=== PATIENT | male | born 1970 | race Caucasian/White ===

== ENCOUNTER 2017-05-15 16:39 | Emergency (ER) | payer SELFPAY ==
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
[2017-05-15 16:58] VITALS: BP 144/87
[2017-05-15] MEDS ORDERED: DIPH,PERTUSS(ACELL),TET VAC/PF 0.5 ML DISP.SYRIN IM ONE (17:25)
[2017-05-15] MEDS ORDERED: Lidocaine 1% 5ml(IM or SUTURE)(PAIN CLINIC) ONE (17:33)
[2017-05-15] MEDS ORDERED: Lidocaine 1% 5ml(IM or SUTURE)(PAIN CLINIC) IJ ONE (17:33)
--- NOTE | 2017-05-15 19:00 | Diagnostic Imaging Report ---
DURAN HARRISON [facility] [id number] [facility] [address] [address] Report Submission Date: May 15, 2017 5:14:34 PM CDT Patient Study Name: BRUCE JAMIL Date: May 15, 2017 4:59:33 PM CDT Modality Type: CR Gender: M Description: UPPER EXTREMITY : 66 Institution: [facility] Physician: DURAN HARRISON Examination: Plain film forearm History: Trauma Comparison exams: None available Findings: 2 views of the tibia radius and ulna demonstrates normal cortical margins. No evidence for fracture line. Ulna styloid ossicle. No soft tissue abnormality. Impression: No acute osseous abnormality. No radiopaque soft tissue foreign body. Electronically signed on May 15, 2017 5:14:34 PM CDT by: Venkata BLAIR
== END 2017-05-15 18:05 | disposition home or self-care (01) ==
LOC: ED 16:39
DX: S51.832A Puncture wound without foreign body of left forearm, initial encounter (principal); X58.XXXA Exposure to other specified factors, initial encounter; Y93.9 Activity, unspecified; Y99.9 Unspecified external cause status
CPT/HCPCS: 10120; 73090; 90471; 90715; 99283